=== PATIENT | female | born 1990 | race Caucasian/White ===

== ENCOUNTER 2023-07-21 01:17 | Emergency (ER) | payer MEDICAID ==
[~2023-07-21] VITALS: Ht 162.6 cm; Wt 46.0 kg
[2023-07-21 01:19] VITALS: BP 124/74; PULSE 76; RESP 18; TEMP 98.7; O2SAT 98
[2023-07-21] MEDS ORDERED: ACETAMINOPHEN 325MG TABLET PO ONE (01:45)
== END 2023-07-21 04:09 | disposition left against medical advice (07) ==
LOC: ER 01:17
DX: R51.9 Headache, unspecified (principal); Z00.00 Encounter for general adult medical examination without abnormal findings; Y04.0XXA Assault by unarmed brawl or fight, initial encounter; Y93.89 Activity, other specified; Y92.89 Other specified places as the place of occurrence of the external cause; Y99.8 Other external cause status
CPT/HCPCS: 99284